=== PATIENT | female | born 1965 | race Caucasian/White ===

== ENCOUNTER 2020-11-30 19:01 | Emergency (ER) | payer MEDICAID ==
[~2020-11-30] VITALS: Ht 175.3 cm; Wt 60.1 kg
[2020-11-30 19:18] VITALS: BP 157/86
--- NOTE | 2020-11-30 19:54 | NUR ---
TESSA SWAB WALKED TO LAB AT THIS TIME
[2020-11-30] MEDS ORDERED: DEXAMETHASONE 4 MG TABLET PO ONE (20:00)
== END 2020-11-30 22:02 | disposition left against medical advice (07) ==
LOC: ED 22:00
DX: R05 Cough (principal); R06.02 Shortness of breath; M79.10 Myalgia, unspecified site; Z20.822 Contact with and (suspected) exposure to COVID-19
CPT/HCPCS: 71045; 99284; U0003; U0005